=== PATIENT | male | born 1980 | race Caucasian/White ===

== ENCOUNTER 2017-06-09 21:33 | Emergency (ER) | payer BC ==
[2017-06-09 21:54] VITALS: BP 143/82; PULSE 91; TEMP 98.9
[2017-06-09 22:21] VITALS: RESP 20
--- NOTE | 2017-06-09 22:22 | XR ---
EXAMINATION TYPE: XR chest 2V DATE OF EXAM: 06/09/2017 COMPARISON: 03/12/2015 HISTORY: Cough and congestion TECHNIQUE: Frontal and lateral views of the chest are obtained. FINDINGS: There is no focal air space opacity, pleural effusion, or pneumothorax seen. The cardiac silhouette size is within normal limits. The osseous structures are intact. IMPRESSION: No acute cardiopulmonary process.
[2017-06-09] MEDS ORDERED: CLARITHROMYCIN 500 MG TAB PO STA (22:33)
--- NOTE | 2017-06-09 22:38 | ED ---
URI HPI - General Chief Complaint: Upper Respiratory Infection Stated Complaint: Cough Time Seen by Provider: 06/09/17 22:15 Source: patient, RN notes reviewed Mode of arrival: ambulatory Limitations: no limitations - History of Present Illness Initial Comments: 37-year-old male presents emergency Department chief complaint of cough congestion times one week. Patient states his symptoms are not improving. Patient states he has tried some nebulized treatments which have helped. Patient states that he's had no morning sickness with feels like. Patient states she's had a temp on and off. 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 Patient also in a mild runny nose/throat denies any difficulty swallowing. Patient denies any headache. Patient states when he has his coughing fits he does feel dizzy denies any chest pain. Patient has not on diarrhea constipation. - Related Data Home Medications Medication Instructions Recorded Confirmed Hydrocodone/Acetaminophen [[place] 1 each PO Q6HR PRN 04/25/14 03/12/15 5-325] Meloxicam [Mobic] 7.5 mg PO BID 04/25/14 03/12/15 Azithromycin [Zithromax] 500 mg PO DAILY 03/12/15 03/12/15 Primidone [Mysoline] 100 mg PO DAILY 03/12/15 03/12/15 guaiFENesin/CODEINE PHOSPHATE 10 ml PO Q6HR PRN 03/12/15 03/12/15 [Guiatuss AC Syrup] predniSONE 10 mg PO DAILY 03/12/15 03/12/15 Previous Rx's Medication Instructions Recorded CHLORPHEN-HYDROcod 8-10mg/5ml 5 ml PO Q12HR #120 ml 06/09/17 [Tussionex] Clarithromycin [Biaxin] 500 mg PO Q12HR #20 tablet 06/09/17 methylPREDNISolone [Medrol Dose 4 mg PO DIRECTED #1 pack 06/09/17 Pack] Allergies Allergy/AdvReac Type Severity Reaction Status Date / Time aspirin Allergy Swelling Verified 06/09/17 21:53 Review of Systems ROS Statement: Those systems with pertinent positive or pertinent negative responses have been documented in the HPI. ROS Other: All systems not noted in ROS Statement are negative. Past Medical History Past Medical History: Seizure Disorder Additional Past Medical History / Comment(s): CHRONIC BACK PAIN History of Any Multi-Drug Resistant Organisms: None Reported Past Surgical History: Appendectomy Past Psychological History: No Psychological Hx Reported Smoking Status: Current every day smoker Past Alcohol Use History: Occasional Past Drug Use History: None Reported General Exam Limitations: no limitations General appearance: alert, in no apparent distress Head exam: Present: atraumatic, normocephalic, normal inspection Eye exam: Present: normal appearance, PERRL, EOMI. Absent: scleral icterus, conjunctival injection, periorbital swelling ENT exam: Present: normal exam, normal oropharynx, mucous membranes moist, TM's normal bilaterally, normal external ear exam Neck exam: Present: normal inspection, full ROM. Absent: tenderness, meningismus, lymphadenopathy Respiratory exam: Present: normal lung sounds bilaterally. Absent: respiratory distress, wheezes, rales, rhonchi, stridor Cardiovascular Exam: Present: regular rate, normal rhythm, normal heart sounds. Absent: systolic murmur, diastolic murmur, rubs, gallop, clicks GI/Abdominal exam: Present: soft, normal bowel sounds. Absent: distended, tenderness, guarding, rebound, rigid Course Vital Signs 06/09/17 06/09/17 21:52 22:19 Temperature 98.9 F Pulse Rate 91 Respiratory 22 20 Rate Blood Pressure 143/82 O2 Sat by Pulse 95 Oximetry Medical Decision Making - Medical Decision Making 37-year-old male members from for cough congestion. Patient's x-ray does not show an acute abnormality. Patient does have tracheobronchitis which her with Biaxin, Tussionex, steroids and nebulizer treatments. Patient does have albuterol at this time. He is advised to follow-up within 48 hours for recheck return parameters were discussed. Disposition Clinical Impression: Tracheobronchitis Disposition: HOME SELF-CARE Condition: Stable Instructions: Acute Bronchitis (ED) Additional Instructions: Please return to the Emergency Department if symptoms worsen or any other concerns. Prescriptions: CHLORPHEN-HYDROcod 8-10mg/5ml [Tussionex] 5 ml PO Q12HR #120 ml Clarithromycin [Biaxin] 500 mg PO Q12HR #20 tablet methylPREDNISolone [Medrol Dose Pack] 4 mg PO DIRECTED #1 pack Referrals: Randy Post MD [Primary Care Provider] - 1-2 days Time of Disposition: 22:38
[2017-06-09] MEDS ORDERED: CHLORPHEN-HYDROcod 8-10mg/5ml 5 ML ORAL.SYRG PO STA (22:40)
[2017-06-09] MEDS ORDERED: CHLORPHEN-HYDROcod 8-10mg/5ml 5 ML ORAL.SYRG PO SCH (22:45)
[2017-06-09] MEDS ORDERED: CLARITHROMYCIN PO ONE (23:15)
== END 2017-06-09 23:21 | disposition home or self-care (01) ==
LOC: EC 21:33
DX: J40 Bronchitis, not specified as acute or chronic (principal); G40.909 Epilepsy, unspecified, not intractable, without status epilepticus; G89.29 Other chronic pain; F17.200 Nicotine dependence, unspecified, uncomplicated; Z79.1 Long term (current) use of non-steroidal anti-inflammatories (NSAID); Z79.52 Long term (current) use of systemic steroids; Z79.899 Other long term (current) drug therapy; Z88.6 Allergy status to analgesic agent
CPT/HCPCS: 71020; 99283

== ENCOUNTER 2019-09-14 11:23 | Emergency (ER) | payer BC ==
[2019-09-14 11:59] VITALS: BP 133/87; PULSE 86; RESP 19; TEMP 98.1
[2019-09-14 13:37] LABS: Appearance,Urine Clear (Clear); Basophils # (A) 0.2 k/uL (0-0.2); Basophils % (A) 2 %; Bilirubin,Urine Negative (Negative); Blood,Urine Negative (Negative); Color,Urine Yellow; Eosinophils # (A) 0.5 k/uL (0-0.7); Eosinophils % (A) 5 %; Glucose,Urine (UA) Negative (Negative); HCT 46.7 % (39.0-53.0); HGB 14.8 gm/dL (13.0-17.5); Ketones,Urine Negative (Negative); Leukocyte Esterase,Urine Negative (Negative); Lymphocytes # (A) 2.3 k/uL (1.0-4.8); Lymphocytes % (A) 22 %; MCHC 31.7 g/dL (31.0-37.0); MCV 78.9 fL (80.0-100.0); Mean Platelet Volume 7.1; Monocytes # (A) 0.4 k/uL (0-1.0); Monocytes % (A) 4 %; Neutrophils # (A) 6.9 k/uL (1.3-7.7); Neutrophils % (A) 66 %; Nitrite,Urine Negative (Negative); Platelet Count 400 k/uL (150-450); Protein,Urine Trace (Negative); RBC 5.91 m/uL (4.30-5.90); Specific Gravity,Urine 1.025 (1.001-1.035); Urobilinogen,Urine <2.0 mg/dL (<2.0); WBC 10.4 k/uL (3.8-10.6)
[2019-09-14 13:50] LABS: ALT 24 U/L (4-49); AST 23 U/L (17-59); African American GFR (CKD) >90 (>60 ml/min/1.73 sqM); Albumin 4.4 g/dL (3.5-5.0); Alkaline Phosphatase 91 U/L (38-126); Amylase 48 U/L (30-110); Anion Gap 9 mmol/L; Blood Urea Nitrogen 11 mg/dL (9-20); Calcium 9.6 mg/dL (8.4-10.2); Carbon Dioxide 28 mmol/L (22-30); Chloride 103 mmol/L (98-107); Glucose 95 mg/dL (74-99); Non-African American GFR(CKD) >90 (>60 ml/min/1.73 sqM); Potassium 4.5 mmol/L (3.5-5.1); Sodium 140 mmol/L (137-145); Total Bilirubin 0.5 mg/dL (0.2-1.3); Total Protein 7.8 g/dL (6.3-8.2)
--- NOTE | 2019-09-14 14:07 | US ---
EXAMINATION TYPE: US abdomen limited DATE OF EXAM: 09/14/2019 COMPARISON: NONE CLINICAL HISTORY: RUQ Pain. EXAM MEASUREMENTS: Liver Length: 16.0 cm Gallbladder Wall: 0.2 cm CBD: 0.2 cm Right Kidney: 10.1 x 4.4 x 4.9 cm Morbidly obese patient with severe overlying bowel gas, technically difficult and limited study. Pancreas: Obscured by bowel gas Liver: Increased attenuation, decreased visualization of vessels suggestive of fatty infiltrate, pace ited assessment Gallbladder: wnl Evidence for sonographic Mattson's sign: No CBD: wnl Right Kidney: No hydronephrosis or masses seen, very limited visualization IMPRESSION: 1. Limited exam demonstrates findings suggestive of hepatic steatosis correlate clinically to exclude hepatocellular disease or hepatitis.
--- NOTE | 2019-09-14 14:10 | ED ---
Abdominal Pain HPI - General Chief Complaint: Abdominal Pain Stated Complaint: Abd Pain Time Seen by Provider: 09/14/19 13:00 Source: patient Mode of arrival: ambulatory Limitations: no limitations - History of Present Illness Initial Comments: 39-year-old male presenting for mid abdominal pain. Patient states that he was diagnosed with gallbladder disease however did not have removed because he was in [facility]. He states that the gallbladder "calm down" he did not need emergent surgery. He states he has had many general surgery consultations how ever no current symptoms. Patient states that today he developed the same exact symptoms as when he was diagnosed with gallbladder disease when he was in [place]. Sharp pain crampy in nature in the mid abdominal area as well as right upper quadrant. Patient states that this time he gets loose stools and the symptoms began last night. Patient denies vomiting admits to some nausea denies any chest pain shortness of breath back pain. Patient denies any lower abdominal pain melena hematochezia, emesis. Remaining review of systems negative upon arrival patient appears well no signs acute distress afebrile - Related Data Home Medications Medication Instructions Recorded Confirmed Hydrocodone/Acetaminophen [[place] 1 each PO Q6HR PRN 04/25/14 03/12/15 5-325] Meloxicam [Mobic] 7.5 mg PO BID 04/25/14 03/12/15 Azithromycin [Zithromax] 500 mg PO DAILY 03/12/15 03/12/15 Primidone [Mysoline] 100 mg PO DAILY 03/12/15 03/12/15 guaiFENesin/CODEINE PHOSPHATE 10 ml PO Q6HR PRN 03/12/15 03/12/15 [Guiatuss AC Syrup] predniSONE 10 mg PO DAILY 03/12/15 03/12/15 Previous Rx's Medication Instructions Recorded CHLORPHEN-HYDROcod 8-10mg/5ml 5 ml PO Q12HR #120 ml 06/09/17 [Tussionex] Clarithromycin [Biaxin] 500 mg PO Q12HR #20 tablet 06/09/17 methylPREDNISolone [Medrol Dose 4 mg PO DIRECTED #1 pack 06/09/17 Pack] Allergies Allergy/AdvReac Type Severity Reaction Status Date / Time aspirin Allergy Swelling Verified 06/09/17 21:53 Review of Systems ROS Statement: Those systems with pertinent positive or pertinent negative responses have been documented in the HPI. ROS Other: All systems not noted in ROS Statement are negative. Past Medical History Past Medical History: Seizure Disorder Additional Past Medical History / Comment(s): CHRONIC BACK PAIN History of Any Multi-Drug Resistant Organisms: None Reported Past Surgical History: Appendectomy Past Psychological History: No Psychological Hx Reported Smoking Status: Current every day smoker Past Alcohol Use History: Occasional Past Drug Use History: None Reported General Exam - General Exam Comments Initial Comments: General: The patient is awake and alert, in no distress, and does not appear acutely ill. Eye: +3 mm pupils are equal, round and reactive to light, extra-ocular movements are intact. No nystagmus. There is normal conjunctiva bilaterally. No signs of icterus. Ears, nose, mouth and throat: There are moist mucous membranes and no oral lesions. Neck: The neck is supple, there is no tenderness or JVD. Cardiovascular: There is a regular rate and rhythm. No murmur, rub or gallop is appreciated. Respiratory: Lungs are clear to auscultation, respirations are non-labored, breath sounds are equal. No wheezes, stridor, rales, or rhonchi. Gastrointestinal: Soft, non-distended, tenderness or patient of the periumbilical region as well as right upper quadrant. Positive Mattson sign. without masses or organomegaly noted. There is no rebound or guarding present. Musculoskeletal: Normal ROM, no tenderness. Strength 5/5. Sensation intact. Radial pulses equal bilaterally 2+. Neurological: A&O x 3. CN II-XII intact grossly, There are no obvious motor or sensory deficits. Coordination appears grossly intact. Speech is normal. Skin: Skin is warm and dry and no rashes or lesions are noted. Psychiatric: Cooperative, appropriate mood & affect, normal judgment. Limitations: no limitations Course Vital Signs 09/14/19 11:57 Temperature 98.1 F Pulse Rate 86 Respiratory 19 Rate Blood Pressure 133/87 O2 Sat by Pulse 97 Oximetry Medical Decision Making - Medical Decision Making 39-year-old male presented for abdominal pain. Pain subsided after one dose of Dilaudid. Ultrasound revealed no acute cholecystitis. Laboratory studies stable. CT of the abdomen and pelvis revealed no acute findings patient comfort able in bed at this time I feel he is stable for discharge with outpatient general surgery consultation. Patient is agreeable to this care plan discharge at this time discussed the case by attending provider Dr. Snyder who was agreeable to discharge. - Lab Data Result diagrams: 09/14/19 13:26 09/14/19 13: Lab Results 09/14/19 09/14/19 09/14/19 Range/Units 13:26 13:26 13:26 WBC 10.4 (3.8-10.6) k/uL RBC 5.91 H (4.30-5.90) m/uL Hgb 14.8 (13.0-17.5) gm/dL Hct 46.7 (39.0-53.0) % MCV 78.9 L (80.0-100.0) fL MCH 25.0 (25.0-35.0) pg MCHC 31.7 (31.0-37.0) g/dL RDW 14.0 (11.5-15.5) % Plt Count 400 (150-450) k/uL Neutrophils % 66 % Lymphocytes % 22 % Monocytes % 4 % Eosinophils % 5 % Basophils % 2 % Neutrophils # 6.9 (1.3-7.7) k/uL Lymphocytes # 2.3 (1.0-4.8) k/uL Monocytes # 0.4 (0-1.0) k/uL Eosinophils # 0.5 (0-0.7) k/uL Basophils # 0.2 (0-0.2) k/uL Sodium 140 (137-145) mmol/L Potassium 4.5 (3.5-5.1) mmol/L Chloride 103 (98-107) mmol/L Carbon Dioxide 28 (22-30) mmol/L Anion Gap 9 mmol/L BUN 11 (9-20) mg/dL Creatinine 0.77 (0.66-1.25) mg/dL Est GFR (CKD-EPI)AfAm >90 (>60 ml/min/1.73 sqM) Est GFR (CKD-EPI)NonAf >90 (>60 ml/min/1.73 sqM) Glucose 95 (74-99) mg/dL Calcium 9.6 (8.4-10.2) mg/dL Total Bilirubin 0.5 (0.2-1.3) mg/dL AST 23 (17-59) U/L ALT 24 (4-49) U/L Alkaline Phosphatase 91 (38-126) U/L Total Protein 7.8 (6.3-8.2) g/dL Albumin 4.4 (3.5-5.0) g/dL Amylase 48 (30-110) U/L Lipase 48 (23-300) U/L Urine Color Yellow Urine Appearance Clear (Clear) Urine pH 5.0 (5.0-8.0) Ur Specific [place] 1.025 (1.001-1.035) Urine Protein Trace H (Negative) Urine Glucose (UA) Negative (Negative) Urine Ketones Negative (Negative) Urine Blood Negative (Negative) Urine Nitrite Negative (Negative) Urine Bilirubin Negative (Negative) Urine Urobilinogen <2.0 (<2.0) mg/dL Ur Leukocyte Esterase Negative (Negative) Disposition Clinical Impression: Diarrhea, Abdominal pain Disposition: HOME SELF-CARE Condition: Good Instructions (If sedation given, give patient instructions): Abdominal Pain (ED) Additional Instructions: Please use medication as discussed. Please follow-up with family doctor in the next 2 days, and general surgery on outpatient basis. Please return to emergency room if the symptoms increase or worsen or for any other concerns. Is patient prescribed a controlled substance at d/c from ED?: No Referrals: Randy Post MD [Primary Care Provider] - 1-2 days Bud Alarcon DO [Doctor of Osteopathic Medicine] - 1-2 days Time of Disposition: 15:27
[2019-09-14] MEDS ORDERED: HYDROmorphone 0.5 MG/0.5 ML SYRINGE IVP STA ×2 (14:33)
--- NOTE | 2019-09-14 15:11 | CT ---
EXAMINATION TYPE: CT abdomen pelvis w con DATE OF EXAM: 09/14/2019 COMPARISON: 11/08/2012 HISTORY: 39-year-old male Mid Abdominal to pelvic pain with nausea TECHNIQUE: Contiguous axial scanning of the abdomen and pelvis following administration of 100 ml Iso memo 300 IV contrast. Delayed images through the kidneys and coronal/sagittal reconstructions perform ed. CT DLP: 2484.3 mGycm Automated exposure control for dose reduction was used. FINDINGS: Heart normal size without pericardial effusion. Lung bases clear without pleural effusion. No focal liver lesion or biliary ductal dilatation. Portal venous system is patent. Gallbladder, adrenal glands, kidneys, spleen, and pancreas appear within normal limits. No dilated small bowel, free fluid, or free air. Some surgical material at the cecum, suspected prior appendectomy. Mild stool burden. No pericolonic inflammatory change. A few scattered nonenlarged left mid abdominal mesenteric lymph nodes. Likely re active/post inflammatory. Bladder nondistended. Numerous pelvic phleboliths. No abnormal fluid collection in the pelvis or pelv ic lymphadenopathy. Bones: Mild degenerative changes at the hips. Bilateral L5 pars defects without spondylolisthesis. IMPRESSION: 1. NO ACUTE INFLAMMATORY PROCESS IDENTIFIED IN THE ABDOMEN OR PELVIS TO EXPLAIN THE PATIENT'S SYMPTOM S. THERE SEEMS TO PRIOR APPENDECTOMY. 2. 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
== END 2019-09-14 15:51 | disposition home or self-care (01) ==
LOC: EC 11:23
DX: R10.11 Right upper quadrant pain (principal); R19.7 Diarrhea, unspecified; R11.0 Nausea; G40.909 Epilepsy, unspecified, not intractable, without status epilepticus; F17.200 Nicotine dependence, unspecified, uncomplicated; Z90.49 Acquired absence of other specified parts of digestive tract; Z79.1 Long term (current) use of non-steroidal anti-inflammatories (NSAID); Z79.52 Long term (current) use of systemic steroids; Z79.899 Other long term (current) drug therapy; Z88.6 Allergy status to analgesic agent; Z53.8 Procedure and treatment not carried out for other reasons
CPT/HCPCS: 36415; 80053; 82150; 83690; 85025; 81003; 76705; 74177; 99284; 96374; J1170; Q9967